=== PATIENT | female | born 2000 | race Two or more races ===

== ENCOUNTER 2024-03-26 11:00 | Outpatient (RCR) | payer MEDICAID, SELFPAY ==
--- NOTE | 2024-03-24 11:17 | PT.ODAYNRPT ---
PT Outpatient Daily Note OP Daily Note Outpatient Physical Therapy Treatment Date: 03/24/24 Visit Reasons: Left shoulder pain Subjective: Pt's shoulder feels good and currently does not have any concerns. Objective: Please see flow chart for list of ther ex performed Assessment: Improving with PNF D1 and D2 AROM with 2# weigth; Pt exhibit less fatigue with exercises Plan: Continue with PT Length of Time (minutes) of Treatment: 30 Minutes Procedure Charges Therapeutic Exercise 30 minutes: Yes
--- NOTE | 2024-03-26 11:48 | PT.ODAYNRPT ---
PT Outpatient Daily Note OP Daily Note Outpatient Physical Therapy Treatment Date: 03/26/24 Visit Reasons: Left shoulder pain Subjective: Pt reports progress with L shoulder . Objective: Please see flow sheet for ther ex list. Assessment: Progressing functional strengthening interventions, added OH press to simulate reaching over head. Plan: Continue with POc. Length of Time (minutes) of Treatment: 30 Minutes Procedure Charges Therapeutic Exercise 30 minutes: Yes
--- NOTE | 2024-04-08 10:48 | PT.ODS1RPT ---
PT OP Progress/Discharge Note Date of Service: 04/08/24 Progress Note/DC Note Progress Note/Discharge Note: DC Note Patient Information Visit Reasons: Left shoulder pain Service Discharge Date: 04/08/24 Status Assessment: Pt called to cx all pending appt. Pt has been release to work and feels good. Pt met most goals set in therapy and will be d/c from care per Pt's request; thank you for your referrals.
== END 2024-04-18 23:59 | disposition home or self-care (01) ==
LOC: CPTX 11:00
PROVIDERS: PCP Nurse Practitioner; Referring Provider Nurse Practitioner; Visit Provider Nurse Practitioner
DX: M25.512 Pain in left shoulder (principal); M75.22 Bicipital tendinitis, left shoulder; S43.432D Superior glenoid labrum lesion of left shoulder, subsequent encounter; X58.XXXD Exposure to other specified factors, subsequent encounter
CPT/HCPCS: 97110

== ENCOUNTER 2024-10-09 12:39 | Emergency (ER) | payer MEDICAID, SELFPAY ==
[2024-10-09 12:41] VITALS: BMI 25.9
--- NOTE | 2024-10-09 12:53 | XR_ITS ---
Examination: CT abdomen and pelvis without contrast. Coronal 3-D reconstructions. Sagittal 2-D reconstructions. Date and time of exam:October 09, 2024 1454 hours Comparison August 09, 2014 INDICATIONS: Abdominal pain lower abdominal pain with bilateral flank pain and diarrhea beginning 2 days ago CTDI: vol (mGy): 6.21 DLP: (mGycm): 338 Technique: Axial images of the abdomen have been obtained, 3 mm slice thickness Intravenous contrast material has not been administered. Low dose protocols were performed. One or more of the following dose reduction techniques were used; automated exposure control, adjustment of the mA and/or KV according to patient size, use of iterative reconstruction technique. Findings: No focal liver or splenic lesions No gallstones No pancreatic or adrenal mass No renal or ureteral calculi, no hydronephrosis Aorta normal size Normal appendix No diverticulitis No bladder mass or bladder calculi Anteverted uterus Intact osseous structures Mild free fluid in the pelvis IMPRESSION: No renal or ureteral calculi, no hydronephrosis Normal appendix No bowel obstruction diverticulitis or free air Mild free fluid in the pelvis, consider pelvic sonography follow-up
--- NOTE | 2024-10-09 12:54 | EDNOTE_ITS ---
ED Female Urogenital RME/HPI General Chief complaint: Nausea/Vomiting/Diarrhea Stated complaint: BILAT. FLANK PAIN X4 DAYS; HX YEAST INFECTION & BV Time Seen by Provider: 10/09/24 12:47 Source: patient Arrival date/time: 10/09/24 12:39 23-year-old female with no known medical history presents to the emergency room with a chief complaint of bilateral flank pain, left lower quadrant and right lower quadrant abdominal pain x 4 days. Patient is also nauseous has vomited and has diarrhea. Mode of arrival: ambulatory Limitations: no limitations Related Data Previous Rx's ?Medication ?Instructions ?Recorded ibuprofen 600 mg tablet 600 mg PO Q8H PRN pain #20 t abs 06/19/18 hydrocodone 5 mg-acetaminophen 325 1 tab PO BID PRN pa in #10 tabs 10/09/24 mg tablet ondansetron 4 mg disintegrating 4 mg PO Q8H PRN nausea and 10/09/24 tablet vomiting #14 tabs Allergies Allergy/AdvReac Type Severity Reaction Status Date / Time No Known Allergies Allergy Verified 10/09/24 12:44 Review of Systems Review of Systems Systems Reviewed: All systems reviewed, normal except as documented Constitutional Constitutional: Reports system reviewed and no additional complaints, except as documented, Denies fatigue, Denies fever(s), Denies headache(s) and Denies weakness Eyes Eyes: Reports system reviewed and no additional complaints, except as documented, Denies blurry vision and Denies change in vision ENT Ears, Nose, Mouth, and Throat: Reports system reviewed and no additional complaints, except as documented, Denies otalgia, Denies headache(s), Denies nasal congestion, Denies throat swelling and Denies vertigo Cardiovascular Cardiovascular: Reports system reviewed and no additional complaints, except as documented, Denies chest pain, Denies dyspnea and Denies dyspnea on exertion Respiratory Respiratory: Reports system reviewed and no additional complaints, except as documented, Denies chest congestion, Denies cough, Denies dyspnea, Denies dyspnea on exertion and Denies wheezing Gastrointestinal Gastrointestinal: Reports system reviewed and no additional complaints, except as documented, Denies abdominal pain, Denies cramping, Denies nausea and Denies vomiting Genitourinary Genitourinary: Reports system reviewed and no additional complaints, except as documented Musculoskeletal Musculoskeletal: Reports system reviewed and no additional complaints, except as documented and Denies back pain Integumentary/Breasts Skin/Breast: Reports system reviewed and no additional complaints, except as documented and Denies wounds Neurologic Neurologic: Reports system reviewed and no additional complaints, except as documented, Denies confusion, Denies headache(s), Denies lack of coordination, Denies vertigo and Denies weakness Psychiatric Psychiatric: Reports system reviewed and no additional complaints, except as documented, Denies anxiety, Denies confusion, Denies depression, Denies paranoia, Denies suicidal ideation and Denies tactile hallucinations Endocrine Endocrine: Reports system reviewed and no additional complaints, except as documented and Denies fatigue Hematologic/Lymphatic Hematologic/Lymphatic: Reports system reviewed and no additional complaints, except as documented and Denies lymphadenopathy Allergic/Immunologic Allergic/Immunologic: Reports system reviewed and no additional complaints, except as documented, Denies throat swelling, Denies urticaria and Denies wheezing Past Medical History Past Medical History CARDIAC: Negative Congestive Heart Failure RESPIRATORY: Negative Chronic Obstructive Pulmonary Disease (COPD) GENITOURINARY: Negative Renal Disease ENDOCRINE: Negative Diabetes Mellitus Type 1 or Diabetes Mellitus Type 2 Family History FAMILY HISTORY: Negative Family Neurologic Problems, Family Psychiatric Problems, Family Respiratory Disorders, Family Cardiac Disorders, Family Gastrointestinal Problems, Family Cancer, Family Surgery or Family Anesthesia Reaction Social History SMOKING STATUS: Never smoker SUBSTANCE USE: does not use ED Exam General Limitations: Present no limitations General appearance: Present alert and in no apparent distress Head Head exam: Present atraumatic Eye Eye exam: Present normal appearance, PERRL and EOMI ENT ENT exam: Present normal exam, normal oropharynx and mucous membranes moist Neck Neck exam: Present normal inspection, full ROM and trachea midline Chest Chest inspection: Present normal inspection and symmetric chest wall rise Respiratory Respiratory exam: Present normal lung sounds bilaterally Cardiovascular Cardiovascular exam: Present regular rate, normal rhythm and normal heart sounds Abdominal Exam Abdominal exam: Present soft, tenderness, normal bowel sounds and tenderness at McBurney's Point Abdominal tenderness: Present RLQ, LLQ and moderate Extremities Exam Extremities exam: Present normal inspection and full ROM Back Exam Back exam: Present normal inspection and full ROM Neurological Exam Neurological exam: Present alert, oriented X3 and CN II-XII intact Psychiatric Psychiatric exam: Present normal affect and normal mood Skin Skin exam: Present warm, dry, intact and normal color Course Quality Measures none Orders Category Date Time Status CT abdomen pelvis wo con Stat Exams 10/09/24 12:53 Completed CBC Stat Lab 10/09/24 13:36 Completed CMP [Comprehensive Metabolic Panel] Stat Lab 10/09/24 13:36 Completed Chlamydia/GC/TV - PCR Stat Lab 10/09/24 Ordered HCG Qualitative,Urine Stat Lab 10/09/24 13:09 Completed Lipase Stat Lab 10/09/24 13:36 Completed Syphilis Stat Lab 10/09/24 13:36 Completed UA [Urinalysis] Stat Lab 10/09/24 13:09 Completed Urine Culture Stat Lab 10/09/24 13:09 Received Ketorolac Inj [Toradol Inj] Med 10/09/24 16:11 Discontinued 30 mg IM X1 ONE Vital Signs Vital signs: Vital Signs Temperature 97.7 F 10/09/24 12:57 Pulse Rate 97 10/09/24 12:57 Respiratory Rate 16 10/09/24 12:57 Blood Pressure 119/83 10/09/24 12:57 Pulse Oximetry (%) 98 10/09/24 12:57 Oxygen Delivery Method Room Air 10/09/24 12:57 O2 saturation within normal limits Urogenital - Female MDM Narrative MDM Narrative:: 23-year-old female with no known medical history presents to the emergency room with a chief complaint of bilateral flank pain, left lower quadrant and right lower quadrant abdominal pain x 4 days. Patient is also nauseous has vomited and has diarrhea. Patient is hemodynamically stable. No apparent distress. She is afebrile not tachycardic and not tachypneic Physical examination shows tenderness to the bilateral CVA. She is also having some right lower quadrant abdominal tenderness with palpation. CT of the abdomen and pelvis was completed and was negative for any acute findings. 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 Patient was given pain medication and discharged Patient was discharged and educated to follow-up with primary care provider in the next 24 to 48 hours and return to the emergency room for any evidence of worsening signs or symptoms Patient data External records reviewed:: [facility] previous records Clinical information provided by:: patient Social determinants that could affect healthcare access:: none Patient has the following chronic illnesses:: No chronic illness How is presenting disease/condition affected by chronic disease/condition?: no chronic disease Evaluation data The following diagnostics were reviewed and interpreted by me:: lab results and radiology exam(s) Lab and/or radiology exams considered but not ordered:: Labs and radiology exams considered and ordered Interpretation Summary: Abdomen pelvis CT-Findings: No focal liver or splenic lesions No gallstones No pancreatic or adrenal mass No renal or ureteral calculi, no hydronephrosis Aorta normal size Normal appendix No diverticulitis No bladder mass or bladder calculi Anteverted uterus Intact osseous structures Mild free fluid in the pelvis IMPRESSION: No renal or ureteral calculi, no hydronephrosis Normal appendix No bowel obstruction diverticulitis or free air Mild free fluid in the pelvis, consider pelvic sonography follow-up Medications / Prescriptions Medications or Prescriptions considered but not ordered:: Medication given Medication administrations:: Medication Administration History Discontinued Medications Ketorolac Tromethamine (Ketorolac Inj 60 Mg/2 Ml Vial) 30 mg IM X1 ONE Stop: 10/09/24 16:12 Last Admin: 10/09/24 16:20 Dose: 30 mg Documented By: OA Medication given Consultations Consultation(s) initiated? (list below): No Diagnosis Urogenital Female Differential Diagnosis: urinary tract infection, bacterial vaginosis, cystitis and other (Pelvic pain) Most likely diagnosis given after review of the tests above:: Pelvic pain Admission Indicated Admission indicated?: not indicated Admission Request Was there a request for admission?: No Disposition Plan Disposition Plan: Discharge Discharge Attestation Discharge Attestation: The patient and all family members were given an opportunity to ask questions and understood the discharge instructions. Discharge instructions specifically effects, indications for sooner follow up or return to the emergency department, and the expected course of current diagnosis. Patient condition: Stable Discharge Plan Plan Patient Disposition: HOME (Self Care) Discharge Disposition comment: Stable Prescriptions/Referrals Prescriptions/Med Rec: New hydrocodone-acetaminophen 5-325 mg tablet 1 tab PO BID MDD 10mg PRN (Reason: pain) Qty: 10 0RF ondansetron 4 mg tablet,disintegrating 4 mg PO Q8H PRN (Reason: nausea and vomiting) Qty: 14 0RF No Action ibuprofen 600 mg tablet 600 mg PO Q8H PRN (Reason: pain) Qty: 20 0RF Rx Instructions: Take 1 ibuprofen with 1 500 mg Tylenol together every 8 hours Referrals: No Primary/Family,Physician [Primary Care Provider] - In 1 week Problem List Clinical Impression: Pelvic pain Patient/Caregiver Discharge Instructions Education Materials: ED Pelvic Pain, Unknown Cause Additional Instructions: Please follow-up with your [employer] M[employer]INIST in the next 24 to 48 hours. Your ultrasound of your pelvis was already completed please follow-up with your [employer] MACHINIST for your results Your CT of your abdomen and pelvis was completed here in the emergency room and was negative for any acute findings Medication was sent to your pharmacy please pick it up and take it as indicated For any evidence of worsening signs or symptoms return to the emergency room immediately Print Language: Portuguese Stand Alone Forms: Seda Award Info., Work/School Release, Patient Portal Info Letter PA/ROLL MACHINE OPERATOR Supervising Physician PA/ROLL MACHINE OPERATOR Supervising Physician: Dr. Cordero
[2024-10-09 12:57] VITALS: BP 119/83; PULSE 97; RESP 16; TEMP 36.5; O2SAT 98; BMI 26.9
[2024-10-09 13:19] LABS: Collection Type, Urine Clean Catch
[2024-10-09 13:45] LABS: HCG Qualitative,Urine Negative
[2024-10-09 13:47] LABS: Bilirubin,Urine Negative (Negative); Blood,Urine Negative (Negative); Clarity,Urine Clear (Clear/Hazy); Color,Urine Yellow (Lt Yel-Yel); Glucose, Urine Negative (Negative); Ketones,Urine Negative (Negative); Leukocyte Esterase,Urine Negative (Negative); Nitrite,Urine Negative (Negative); PH,Urine 8.5 (5.0-7.0); Protein,Urine Trace (Neg - Trace); RBC,Urine 3 /hpf (0-3); Specific Gravity,Urine 1.026 (1.001-1.035); Squamous Epithelial Cell,Urine 6 /hpf (0-5); Urobilinogen,Urine Negative mg/dL (0.0-1.0); WBC,Urine 1 /hpf (0-5)
[2024-10-09 13:49] LABS: Basophils % (Auto) 0 % (0-2.5); Eosinophils % (Auto) 0 % (0-10); Hemoglobin 13.9 g/dL (12.0-16.0); Immature Granulocytes % (Auto) 0 % (0-0); Immature Granulocytes Auto 0.04 Thou/mm3 (0.00-0.00); Lymphocytes # (Auto) 0.6 Thou/mm3 (1.0-4.8); Lymphocytes % (Auto) 5 % (10-50); Mean Corpuscular HGB Conc 35.6 g/dl (31.0-37.0); Mean Corpuscular Hemoglobin 31.9 pg (25.0-35.0); Mean Corpuscular Volume 89 fL (80-100); Monocytes # (Auto) 0.5 Thou/mm3 (0.0-0.8); Monocytes % (Auto) 4 % (0-12); Neutrophils # (Auto) 10.6 Thou/mm3 (1.8-7.7); Neutrophils % (Auto) 90 % (37-80); Nucleated Red Blood Cell % 0 /100 WBC (0); Platelet Count 323 Thou/mm3 (140-440); RDW Standard Deviation 38.3 fL (36.4-46.3); Red Blood Count 4.36 Miln/mm3 (4.00-5.20); White Blood Count 11.7 Thou/mm3 (3.6-11.0)
[2024-10-09 14:02] LABS: Alanine Aminotransferase 29 U/L (10-49); Albumin, Serum 4.8 gm/dL (3.5-5.0); Albumin/Globulin Ratio 1.6 (1.2-2.2); Alkaline Phosphatase 94 U/L (46-116); Anion Gap 8 (7-16); Aspartate Amino Transferase 27 U/L (0-34); BUN/Creatinine Ratio 17 Ratio (12-20); Bilirubin,Total 0.7 mg/dL (0.3-1.2); Blood Urea Nitrogen 10 mg/dL (9-23); Carbon Dioxide 26.4 mMol/L (20.0-31.0); Chloride 102 mMol/L (98-107); Creatinine (Component) 0.6 mg/dL (0.6-1.3); Estimated Creatinine Clearance 115.2 mL/min (>60); Glucose 99 mg/dL (74-106); Lipase 28 U/L (12-53); Osmolality,Calculated 270 (275-295); Sodium 136 mMol/L (136-145); Total Protein 7.8 gm/dL (5.7-8.2); eGFR > 60 See Note
[2024-10-09 14:26] LABS: Syphilis Nonreactive (Nonreactive)
[2024-10-09] MEDS: KETOROLAC INJ 60 MG/2 ML VIAL 30 MG IM (16:20)
[2024-10-09 16:31] VITALS: BP 118/78; PULSE 77; O2SAT 99
== END 2024-10-09 16:32 | disposition home or self-care (01) ==
PROVIDERS: Nurse Practitioner Family; Emergency Provider Family Medicine
DX: R10.2 Pelvic and perineal pain (principal); R10.31 Right lower quadrant pain
CPT/HCPCS: 36415; 74176; 80053; 81001; 81025; 83690; 85025; 86780; 87077; 87086; 87186; 87491; 87591; 87661; 96372; 99284; J1885

== ENCOUNTER → 2025-03-22 | Outpatient (CLI) | payer MEDICAID, SELFPAY ==
--- NOTE | 2025-03-22 15:30 | XR_ITS ---
Examination: Transvaginal ultrasound of the pelvis, complete Technique: Transvaginal sonographic images pelvis performed using cueto scale imaging Exam date and time: March 22, 2025, 1551 hours INDICATIONS: Right lower abdomen and pelvic pain for months, mild free fluid in the pelvis on CT October 09, 2024. FINDINGS: Uterus 7.8 cm no uterine mass or intrauterine gestation Endometrial stripe 0.7 cm Right ovary 5.7 cm arterial flow, 4.0, 3.1 cm cysts Left ovary 2.8 cm arterial flow IMPRESSION: Right ovarian septated complex cyst, 4.0 x 3.2 cm, 3.1 x 3.0 cm, recommend 3-month follow-up transabdominal pelvic sonography.
== END | disposition home or self-care (01) ==
LOC: CDIM 15:37
PROVIDERS: Referring Provider Obstetrics & Gynecology; Visit Provider Obstetrics & Gynecology
DX: N83.291 Other ovarian cyst, right side (principal)
CPT/HCPCS: 76830

== ENCOUNTER 2025-04-25 22:45 | Emergency (ER) | payer MEDICAID, SELFPAY ==
[2025-04-25 22:45] VITALS: BMI 26.2
[2025-04-25 22:55] VITALS: BP 143/88; PULSE 85; RESP 18; TEMP 36.7; O2SAT 99
[2025-04-25] MEDS: MethylPREDNISolone SOD SUCC 62.5 MG/ML 2ML VIAL 125 MG IM (23:29)
[2025-04-25] MEDS: FAMOTIDINE 20 MG TABLET 40 MG PO (23:30)
--- NOTE | 2025-04-27 03:21 | EDNOTE_ITS ---
ED Skin Abcess FB-RME/HPI General Chief complaint: Skin/Abscess/Foreign Body Stated complaint: RASH ALL OVER, THROAT FEELS SWOLLEN Time Seen by Provider: 04/25/25 23:08 Arrival date/time: 04/25/25 22:45 This is a case of 24-year-old female with no medical history came into the emergency room due to generalized maculopapular rashes with mild swelling on the lips no drooling of saliva patient can speak full sentences persistent of the symptoms today this patient decided to start consult her in the emergency room no new medication no new lotion or perfume Limitations: no limitations Related Data Previous Rx's ?Medication ?Instructions ?Recorded ibuprofen 600 mg tablet 600 mg PO Q8H PRN pain #20 t abs 06/19/18 hydrocodone 5 mg-acetaminophen 325 1 tab PO BID PRN pa in #10 tabs 10/09/24 mg tablet ondansetron 4 mg disintegrating 4 mg PO Q8H PRN nausea and 10/09/24 tablet vomiting #14 tabs diphenhydramine HCl 25 mg capsule 25 mg PO TID PRN itc junior #20 caps 04/25/25 (Benadryl) famotidine 20 mg tablet (Pepcid) 20 mg PO BID #10 tabs 04/25/25 prednisone 20 mg tablet See Taper PO QDAY 5 days #5 tabs 04/25/25 Allergies Allergy/AdvReac Type Severity Reaction Status Date / Time No Known Allergies Allergy Verified 10/09/24 12:44 Review of Systems Review of Systems Systems Reviewed: All systems reviewed, normal except as documented Constitutional Constitutional: Reports system reviewed and no additional complaints, except as documented and Reports as per HPI Cardiovascular Cardiovascular: Reports system reviewed and no additional complaints, except as documented and Reports as per HPI Respiratory Respiratory: Reports system reviewed and no additional complaints, except as documented and Reports as per HPI Gastrointestinal Gastrointestinal: Reports system reviewed and no additional complaints, except as documented and Reports as per HPI Musculoskeletal Musculoskeletal: Reports system reviewed and no additional complaints, except as documented and Reports as per HPI Neurologic Neurologic: Reports system reviewed and no additional complaints, except as documented and Reports as per HPI Past Medical History Past Medical History CARDIAC: Negative Congestive Heart Failure RESPIRATORY: Negative Chronic Obstructive Pulmonary Disease (COPD) GENITOURINARY: Negative Renal Disease ENDOCRINE: Negative Diabetes Mellitus Type 1 or Diabetes Mellitus Type 2 Family History FAMILY HISTORY: Negative Family Neurologic Problems, Family Psychiatric Problems, Family Respiratory Disorders, Family Cardiac Disorders, Family Gastrointestinal Problems, Family Cancer, Family Surgery or Family Anesthesia Reaction Social History SMOKING STATUS: Never smoker SUBSTANCE USE: does not use ED Exam General Limitations: Present no limitations General appearance: Present alert, in no apparent distress and other (Patient is awake alert oriented not in distress nontoxic looking well-hydrated well nourished) Head Head exam: Present atraumatic, normocephalic and normal inspection Eye Eye exam: Present normal appearance, PERRL and EOMI ENT ENT exam: Present normal exam, normal oropharynx, mucous membranes moist and other (HEENT exam is normal and unremarkable no facial or throat swelling tonsils are lips were normal no drooling of saliva patient can speak full sentences) Neck Neck exam: Present normal inspection, full ROM and trachea midline; Absent tenderness, meningismus, lymphadenopathy or thyromegaly Chest Chest inspection: Present normal inspection and symmetric chest wall rise; Absent tenderness Respiratory Respiratory exam: Present normal lung sounds bilaterally; Absent respiratory distress, wheezes, stridor, accessory muscle use or prolonged expiratory phase Cardiovascular Cardiovascular exam: Present regular rate, normal rhythm and normal heart sounds; Absent bradycardia, tachycardia, irregular rhythm, systolic murmur or diastolic murmur Abdominal Exam Abdominal exam: Present soft and normal bowel sounds; Absent distention, tenderness, guarding, rebound, rigidity, diminished bowel sounds, hyperactive bowel sounds, hypoactive bowel sounds or organomegaly Extremities Exam Extremities exam: Present normal inspection and full ROM Back Exam Back exam: Present normal inspection and full ROM Neurological Exam Neurological exam: Present alert, oriented X3, CN II-XII intact, normal gait and reflexes normal; Absent motor sensory deficit Psychiatric Psychiatric exam: Present normal affect and normal mood Skin Skin exam: Present warm, dry, intact, normal color and other (Noted maculopapular rashes on the face both upper and both lower extremities back chest abdomen nonblanching no abscess no cellulitis) Course Quality Measures none Orders Category Date Time Status DiphenhydrAMINE INJ [Benadryl Inj] Med 04/25/25 23:10 Discontinued 50 mg IM X1 ONE Famotidine [Pepcid] Med 04/25/25 23:10 Discontinued 40 mg PO X1 ONE MethylPREDNISolone.* [SoluMEDROL Inj] Med 04/25/25 23:10 Discontinued 125 mg IM X1 ONE Vital Signs Vital signs: Vital Signs Temperature 98.0 F 04/25/25 22:55 Pulse Rate 85 04/25/25 22:55 Respiratory Rate 18 04/25/25 22:55 Blood Pressure 143/88 H 04/25/25 22:55 Pulse Oximetry (%) 99 04/25/25 22:55 Oxygen Delivery Method Room Air 04/25/25 22:55 Oxygen saturation is 99 Skin / Abscess / Foreign Body MDM Narrative MDM Narrative:: This is a case of 24-year-old female with no medical history came into the emergency room due to generalized maculopapular rashes with mild swelling on the lips no drooling of saliva patient can speak full sentences persistent of the symptoms today this patient decided to start consult her in the emergency room no new medication no new lotion or perfume physical examination patient is awake alert oriented not in distress nontoxic looking well-hydrated well nourisshed throat exam noted normal no facial swelling no throat swelling lips is not swollem able to swallow with no difficulty no drooling of saliva patient can speak full sentence lungs sound is clear no wheezing no rhonchi no crackles no rales no retraction no stridor noted maculopapular rash chest generalized face chest abdomen back both upper and both lower extremities based on my physical examination and history no signs and symptoms of angioedema or anaphylaxis patient was given Solu-Medrol IM here in the emergency room Benadryl and Pepcid after 1 hour patient was reassessed rashes outside no shortness of breath no throat or facial swelling patient will be discharged home in stable condition she was advised to see field property loss specialist for allergy testing she will follow-up with PCP in 2 days for reevaluation and if any recurrence persistent worsening symptoms return to the emergency room immediately or call 911 Patient data External records reviewed:: [facility] previous records Clinical information provided by:: patient Social determinants that could affect healthcare access:: none Patient has the following chronic illnesses:: None How is presenting disease/condition affected by chronic disease/condition?: no chronic disease Evaluation data The following diagnostics were reviewed and interpreted by me:: other (specify) (None) Lab and/or radiology exams considered but not ordered:: None Interpretation Summary: None Medications / Prescriptions Medications or Prescriptions considered but not ordered:: Given Medication administrations:: Medication Administration History Discontinued Medications Diphenhydramine HCl (Diphenhydramine Inj 50 Mg/Ml Vial) 50 mg IM X1 ONE Stop: 04/25/25 23:11 Last Admin: 04/25/25 23:29 Dose: 50 mg Documented By: EDA Famotidine (Famotidine 20 Mg Tablet) 40 mg PO X1 ONE Stop: 04/25/25 23:11 Last Admin: 04/25/25 23:30 Dose: 40 mg Documented By: EDA Methylprednisolone Sodium Succinate (Methylprednisolone Sod Succ 62.5 Mg/Ml 2ml Vial) 125 mg IM X1 ONE Stop: 04/25/25 23:11 Last Admin: 04/25/25 23:29 Dose: 125 mg Documented By: EDA Given Consultations Consultation(s) initiated? (list below): No Diagnosis Skin/Abscess Differential Diagnosis: abscess of skin or subcutaneous tissue, urticaria, allergic reaction to drug, cellulitis and contact dermatitis Most likely diagnosis given after review of the tests above:: Acute allergic reaction Admission Indicated Admission indicated?: not indicated Explain why admission is indicated or not indicated:: Not indicated Admission Request Was there a request for admission?: No Admission Attestation Admission request attestation: Not indicated Disposition Plan Disposition Plan: Discharge Discharge Attestation Discharge Attestation: The patient and all family members were given an opportunity to ask questions and understood the discharge instructions. Discharge instructions specifically effects, indications for sooner follow up or return to the emergency department, and the expected course of current diagnosis. Patient condition: Stable Discharge Plan Plan Patient Disposition: HOME (Self Care) Patient condition on transfer: Stable Prescriptions/Referrals Prescriptions/Med Rec: New diphenhydramine HCl [Benadryl] 25 mg capsule 25 mg PO TID PRN (Reason: itching) Qty: 20 0RF prednisone 20 mg tablet See Taper PO QDAY 5 Days Qty: 5 0RF Taper: Prednisone Taper 20 mg DAILY for 2 Days and 0 Hour 10 mg DAILY for 2 Days and 0 Hour 5 mg DAILY for 7 Days and 0 Hour famotidine [Pepcid] 20 mg tablet 20 mg PO BID Qty: 10 0RF No Action ibuprofen 600 mg tablet 600 mg PO Q8H PRN (Reason: pain) Qty: 20 0RF Rx Instructions: Take 1 ibuprofen with 1 500 mg Tylenol together every 8 hours hydrocodone-acetaminophen 5-325 mg tablet 1 tab PO BID MDD 10mg PRN (Reason: pain) Qty: 10 0RF ondansetron 4 mg tablet,disintegrating 4 mg PO Q8H PRN (Reason: nausea and vomiting) Qty: 14 0RF Problem List Clinical Impression: Acute allergic reaction Patient/Caregiver Discharge Instructions Education Materials: ED Medicine Reaction: Allergic, ED Allergy Seasonal (Swazi) Additional Instructions: Follow-up with your primary care physician in 2 days for reevaluation and to be referred to field property loss specialist for allergy testing worsening recurrence persistent or any emergent concern call 911 or go to the nearest emergency room take your medication as directed keep hydrated use hypoallergenic and hypoallergenic soap advise Print Language: Swazi Stand Alone Forms: Seda Award Info., Patient Portal Info Letter PA/ORIGINATION SPECIALIST Supervising Physician PA/ORIGINATION SPECIALIST Supervising Physician: dr lavinia solo
== END 2025-04-26 00:35 | disposition home or self-care (01) ==
LOC: SERX 23:44
PROVIDERS: Emergency Provider Emergency Medicine; PCP Nurse Practitioner Family
DX: R21 Rash and other nonspecific skin eruption (principal)
CPT/HCPCS: 96372; 99282; J1200; J2919; A9270